=== PATIENT | female | born 1980 | race Caucasian/White ===

== ENCOUNTER 2019-05-01 14:19 | Emergency (ER) | payer MEDICAID, SELFPAY ==
[~2019-05-01] VITALS: Ht 157.5 cm; Wt 81.5 kg
[2019-05-01 14:22] VITALS: BP 151/101
[2019-05-01 15:00] LABS: ANION GAP 5 mmol/L (5-15); CALCIUM 9.1 mg/dL (8.5-10.1); CHLORIDE 108 mmol/L (98-107)
[2019-05-01 15:04] LABS: ALANINE AMINOTRANSFERASE 35 U/L (12-78); ALKALINE PHOSPHATASE 82 U/L (45-117); BILIRUBIN,TOTAL 0.5 mg/dL (0.2-1.0); CREATININE 1.07 mg/dL (0.55-1.02); TOTAL PROTEIN 8.1 g/dL (6.4-8.2)
[2019-05-01 15:08] LABS: BASOPHILS # (AUTO) 0.04 x10^3/uL (0-0.1); BASOPHILS % (AUTO) 1 % (0-1); EOSINOPHILS # (AUTO) 0.17 x10^3/uL (0-0.4); EOSINOPHILS % (AUTO) 3 % (1-7); LYMPHOCYTES # (AUTO) 1.42 x10^3/uL (1-3.4); LYMPHOCYTES % (AUTO) 23 % (22-44); MD NO; MEAN CORPUSCULAR HGB CONC 32.5 g/dL (32.4-35.8); MEAN CORPUSCULAR VOLUME 89.2 fL (80-100); MEAN PLATELET VOLUME 7.8 fL (7.4-10.4); MONOCYTES # (AUTO) 0.57 x10^3/uL (0.2-0.8); MONOCYTES % (AUTO) 9 % (2-9); NEUTROPHILS # (AUTO) 3.93 x10^3/uL (1.8-6.8); NEUTROPHILS % (AUTO) 64 % (42-75); PLATELET COUNT 245 x10^3/uL (130-400); RED BLOOD COUNT 4.49 x10^6/uL (3.82-5.3); RED CELL DISTRIBUTION WIDTH 13.5 % (9.6-15.2)
[2019-05-01 16:05] LABS: MICROSCOPIC INDICATED
[2019-05-01 16:06] LABS: CULTURE INDICATED? YES
--- NOTE | 2019-05-01 17:01 | NUR ---
pt to room from lobby, changed into gown, responds approp to staff, NAD at rest, comfort measure provided, call light within reach.
== END 2019-05-01 17:35 | disposition home or self-care (01) ==
LOC: ED 17:23
DX: N30.00 Acute cystitis without hematuria (principal); K04.7 Periapical abscess without sinus; I10 Essential (primary) hypertension; R10.2 Pelvic and perineal pain
CPT/HCPCS: 36415; 80053; 81001; 81025; 85025; 87077; 87086; 87186; 99283

== ENCOUNTER 2019-06-07 12:42 | Emergency (ER) | payer MEDICAID ==
[~2019-06-07] VITALS: Ht 157.5 cm; Wt 81.6 kg
[2019-06-07 12:48] VITALS: BP 142/97
== END 2019-06-07 13:15 | disposition home or self-care (01) ==
LOC: ED 12:55
DX: H66.001 Acute suppurative otitis media without spontaneous rupture of ear drum, right ear (principal); H60.91 Unspecified otitis externa, right ear; F17.200 Nicotine dependence, unspecified, uncomplicated
CPT/HCPCS: 99283

== ENCOUNTER 2019-07-03 01:19 | Inpatient (IN) | payer MEDICAID ==
[~2019-07-03] VITALS: Ht 160 cm; Wt 94.4 kg
[2019-07-06 13:10] VITALS: BP 145/92
== END 2019-07-06 16:05 | disposition left against medical advice (07) | DRG 92 ==
LOC: ED 01:36 → EDIP 04:08 → 4NOR 04:30
PROVIDERS: ADMIT Internal Medicine; ATTEND Internal Medicine
PROC: 0NSV04Z Reposition Left Mandible with Internal Fixation Device, Open Approach (ICD-10-PCS; principal; 2019-07-04)
PROC: 0NST04Z Reposition Right Mandible with Internal Fixation Device, Open Approach (ICD-10-PCS; 2019-07-04)
DX: S02.612A Fracture of condylar process of left mandible, initial encounter for closed fracture (principal); S06.0X9A Concussion with loss of consciousness of unspecified duration, initial encounter; S02.66XB Fracture of symphysis of mandible, initial encounter for open fracture; F15.10 Other stimulant abuse, uncomplicated; S02.5XXA Fracture of tooth (traumatic), initial encounter for closed fracture; S02.642A Fracture of ramus of left mandible, initial encounter for closed fracture; S02.40DA Maxillary fracture, left side, initial encounter for closed fracture; F17.200 Nicotine dependence, unspecified, uncomplicated; Z71.6 Tobacco abuse counseling; G89.11 Acute pain due to trauma; I10 Essential (primary) hypertension; S00.01XA Abrasion of scalp, initial encounter; Z53.21 Procedure and treatment not carried out due to patient leaving prior to being seen by health care provider; Y04.0XXA Assault by unarmed brawl or fight, initial encounter; Y93.89 Activity, other specified; Y92.89 Other specified places as the place of occurrence of the external cause; Y99.8 Other external cause status; M26.4 Malocclusion, unspecified; Z71.51 Drug abuse counseling and surveillance of drug abuser
CPT/HCPCS: 36415; 70450; 70486; 80048; 80053; 80074; 80307; 84703; 85025; 86592; 86701; 86702; 86780; 87389; 87491; 87591; 90471; 90715; 96365; 96375; 99285; C1713; G0378; J0295; J0690; J1100; J1170; J2250; J2405; J2704; J3010; J3490; J0330; J0360; J2270; J2370; J7030

== ENCOUNTER → 2020-01-07 | Outpatient (CLI) | payer MEDICAID ==
[~2020-01-07] MED LIST: AMOX1TAB64 PO
== END | disposition home or self-care (01) ==
LOC: CFH 12:50
PROVIDERS: ATTEND Otolaryngology Facial Plastic Surgery
DX: S02.66XB Fracture of symphysis of mandible, initial encounter for open fracture (principal); S02.2XXA Fracture of nasal bones, initial encounter for closed fracture; S06.890A Other specified intracranial injury without loss of consciousness, initial encounter; K04.7 Periapical abscess without sinus; K04.1 Necrosis of pulp; X58.XXXA Exposure to other specified factors, initial encounter; Y93.89 Activity, other specified; Y92.89 Other specified places as the place of occurrence of the external cause; Y99.8 Other external cause status
CPT/HCPCS: 70486